=== PATIENT | female | born 1995 | race Hispanic/Latino ===

== ENCOUNTER 2022-03-30 17:06 | Emergency (ER) | payer OTHER, SELFPAY | END 2022-03-30 20:03 | disposition home or self-care (01) | LOC: ERS 17:06 | DX: U07.1 COVID-19 (principal) | CPT/HCPCS: 71045; 87081; 87430; 87804; 93005; U0003; U0005 ==

== ENCOUNTER 2025-06-02 21:33 | Emergency (ER) | payer SELFPAY | END 2025-06-02 23:05 | disposition home or self-care (01) | LOC: ERS 21:33 | DX: Z32.01 Encounter for pregnancy test, result positive (principal); F17.210 Nicotine dependence, cigarettes, uncomplicated | CPT/HCPCS: 36415; 84702; 99282 ==